=== PATIENT | male | born 1990 | race Caucasian/White ===

== ENCOUNTER 2017-10-19 15:36 | Emergency (ER) | payer MEDICAID ==
[~2017-10-19] VITALS: Ht 172.7 cm; Wt 142.0 kg
[2017-10-19 15:48] VITALS: Ht 172.7 cm; Wt 142.0 kg
[2017-10-19 19:56] VITALS: BP 134/87
== END 2017-10-19 19:56 | disposition home or self-care (01) ==
LOC: ED 15:36
DX: S91.311A Laceration without foreign body, right foot, initial encounter (principal); R03.0 Elevated blood-pressure reading, without diagnosis of hypertension; W04.XXXA Fall while being carried or supported by other persons, initial encounter; Y93.89 Activity, other specified; Y92.89 Other specified places as the place of occurrence of the external cause; Y99.8 Other external cause status
CPT/HCPCS: 90715; J2001